=== PATIENT | male | born 1995 | race African-American/Black ===

== ENCOUNTER 2020-07-18 11:25 | Inpatient (IN) ==
[2020-07-18] MEDS ORDERED: SODIUM CHLORIDE 0.9% 1000ML 2,000 ML IV ONE (11:44)
[2020-07-18] MEDS ORDERED: ONDANSETRON INJ 2 MG/ML 2 ML VIAL IV STA (11:46)
[2020-07-18] MEDS ORDERED: ONDANSETRON INJ 2 MG/ML 2 ML VIAL ONE (11:47)
[2020-07-18 12:04] LABS: Hematocrit (blood only) 51.9 % (42-52); Hemoglobin 17.9 g/dL (14.0-18.0); Immature Granulocytes # (auto) 0.02 K/uL (0.00-0.02); Immature Granulocytes % (auto) 0.2 %; Lymphocytes # (auto) 1.46 K/uL (1.2-3.4); Mean Corpuscular Hemoglobin 30.1 pg (25-34); Mean Corpuscular Hgb Conc 34.5 g/dL (32-36); Mean Corpuscular Volume 87.4 fL (80-100); Mean Platelet Volume 11.9 fL (7.4-10.4); Monocytes # (auto) 0.45 K/uL (0.11-0.59); Monocytes % (auto) 4.9 %; Neutrophils # (auto) 7.17 K/uL (1.4-6.5); Neutrophils % (auto) 78.9 %; Platelet Count 233 K/uL (130-400); RDW Coefficient of Variation 12.9 % (11.5-14.5); Red Blood Count 5.94 M/uL (4.7-6.1)
[2020-07-18 12:06] LABS: Base Excess VBG 5.1 mEq/L; Oxygen Saturation VBG 82.2 %; pH VBG 7.55 (7.36-7.41)
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
[2020-07-18 12:13] LABS: iSTAT Creatinine 1.3 mg/dl (0.6-1.3); iSTAT Ionized Calcium 0.89 mmol/l (1.12-1.32); iSTAT Potassium 4.8 mmol/L (3.3-5.0)
[2020-07-18 12:25] LABS: BUN Creatinine Ratio 26.3 (10-20); Calcium 10.1 mg/dl (8.5-10.1); Creatinine Clr Calc Pharmacy 51.8 ml/min; Est GFR (African American) 67.8 ml/min; Est GFR (Non-African American) 58.5 ml/min; Potassium 3.5 mmol/L (3.5-5.1)
[2020-07-18] MEDS ORDERED: GLUCAGON FOR INJ 1 MG VIAL SQ PRN (12:28)
[2020-07-18] MEDS ORDERED: DEXTROSE 50% 50 ML SYRINGE IV PRN (12:28)
[2020-07-18] MEDS ORDERED: CARBOHYDRATES FOR HYPOGLYCEMIA PO PRN (12:28)
[2020-07-18] MEDS ORDERED: GLUCOSE 10 TAB/TUBE PO PRN (12:28)
[2020-07-18] MEDS ORDERED: STAT IV Infusion **Titration per Protocol STA (12:28)
[2020-07-18] MEDS ORDERED: ED DKA INSULIN DRIP ONE (12:28)
[2020-07-18] MEDS ORDERED: GLUCOSE 40% GEL 15 GM TUBE PO PRN (12:28)
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
[2020-07-18] MEDS ORDERED: POTASSIUM CHLORIDE 40 MEQ in SODIUM CHLORIDE 0.9% 1000ML 1,000 ML IV SCH (12:30)
[2020-07-18] MEDS ORDERED: INSULIN REGULAR 250 UNITS in SODIUM CHLORIDE 0.9% 247.5 ML IV SCH (12:30)
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
[2020-07-18] MEDS ORDERED: GI COCKTAIL ED USE PO ONE (12:42)
[2020-07-18 12:52] LABS: Beta-Hydroxybutyrate 65.61 mg/dl (0.2-2.81)
[2020-07-18 12:54] LABS: Estimated Average Glucose 214 mg/dl; Hemoglobin A1C 9.1 % (4.5-5.6)
[2020-07-18 12:56] LABS: Magnesium 2.7 mg/dl (1.8-2.4); Phosphorus 3.6 mg/dl (2.5-4.9)
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
[2020-07-18] MEDS ORDERED: PHARMACY GLYCEMIC MGMT CONSULT SCH (16:12)
--- NOTE | 2020-07-18 16:26 | Pharmacy Report ---
Pharmacy Glycemic Short Note 2 - Date of Service July 18, 2020 - Glycemic Short BSG Results (Last 24 hours): 07/18/20 07/18/20 07/18/20 11:37 11:54 12:00 Glucose 428 H* POC Glucose 456 H* POC Glucose (other) 443 H* 07/18/20 07/18/20 07/18/20 12:59 13:58 14:58 Glucose POC Glucose 341 H* 303 H* 256 H POC Glucose (other) 07/18/20 16:12 Glucose POC Glucose 206 H POC Glucose (other) Laboratory Tests 07/18/20 11:54 Carbon Dioxide 26 Anion Gap 19.0 H Beta-Hydroxybutyric Acd 65.61 H OUTPATIENT ANTIDIABETIC REGIMEN: * Lantus 26 units SQ QAM - LAST DOSE ON 07/17 AM * Apidra * CR 1 unit per 25 grams CHO consumed * CF 1:50 over 150mg/dl, max 6 units ASSESSMENT: * 24 year old male admitted in possible DKA or hyperglycemia (not HHS, osmolality OK, pH 7.55, anion gap 19, CO2 26, BHA 65) started on DKA protocol and insulin drip * Drip currently running at 5.1units/hr, blood sugar down to 206mg/dl, fluids changed from NS + 40K @ 125cc/hr to D5NS +40K @125cc/hr * Patient NPO, repeat labs at 1800 * Start Lantus at reduced dose, as patient did not take yet today PLAN FOR INPATIENT GLYCEMIC CONTROL: * IV insulin infusion, moderate stress * Running at 5.1units/hr * Goal range 150-250mg/dl - will change to 110-180mg/dl later this evening * Transition to basal bolus once euglycemic, gap closed, and clinically improving * Lantus 16 units x 1 dose now, then further dosing in AM
[2020-07-18] MEDS ORDERED: POTASSIUM CHLORIDE 40 MEQ in D5W AND NSS 1,000 ML IV SCH (16:30)
[2020-07-18] MEDS ORDERED: INSULIN ASPART 100 UNITS/ML 3 ML PEN SC SCH (16:30)
[2020-07-18] MEDS: ONDANSETRON INJ 2 MG/ML 2 ML VIAL IV PRN ×2 (16:31→20:19)
[2020-07-18 16:45] LABS: Appearance Urine Clear (Clear); Bacteria Urine Automated Negative (Negative); Bilirubin Urine Negative (Negative); Blood Urine Negative (Negative); Color Urine Yellow; Glucose Urine UA 3+ (Negative); Ketones Urine 3+ (Negative); Leukocyte Esterase Urine Negative (Negative); Nitrite Urine Negative (Negative); Protein Urine 2+ (Negative); RBC Urine Automated 0-4 /hpf (0-4); Specific Gravity Urine 1.039 (1.000-1.030); Urobilinogen Urine Negative (Negative); pH Urine 5.5 (4.5-7.5)
[2020-07-18] MEDS ORDERED: INSULIN GLARGINE SOLOSTAR 100 UNITS/ML 3 ML PEN SC ONE ×2 (16:45→20:30)
[2020-07-18] MEDS ORDERED: ALUMINUM/MAGNESIUM SUSP 18 ML, LIDOCAINE VISCOUS 2% SOLN 6 ML, BARCODE IDENTIFIER 1 EACH PO ONE (17:09)
[2020-07-18] MEDS ORDERED: FAMOTIDINE 20MG IV PUSH 20 MG/5 ML SYR IV STA (17:16)
[2020-07-18 18:03] LABS: Base Excess VBG 6.6 mEq/L; Oxygen Saturation VBG 88.9 %; pH VBG 7.46 (7.36-7.41)
[2020-07-18 18:20] LABS: BUN Creatinine Ratio 24.6 (10-20); Calcium 8.1 mg/dl (8.5-10.1); Creatinine Clr Calc Pharmacy 65.8 ml/min; Est GFR (African American) 90.6 ml/min; Est GFR (Non-African American) 78.2 ml/min; Potassium 3.5 mmol/L (3.5-5.1)
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
[2020-07-18] MEDS: POTASSIUM CHLORIDE 40 MEQ in DEXTROSE 5% 1,000 ML IV SCH (19:41)
[2020-07-18] MEDS: PENDING D5NS+40mEq KCL IVF SCH ×2 (19:45→20:08)
[2020-07-18] MEDS ORDERED: ALUMINUM/MAGNESIUM SUSP 30 ML UDC PO PRN (20:23)
[2020-07-18] MEDS: INSULIN ASPART 100 UNITS/ML 3 ML PEN SC SCH (20:26)
[2020-07-18] MEDS ORDERED: METOPROLOL TARTRATE 1 MG/ML VIAL IV PRN (20:34)
[2020-07-18] MEDS ORDERED: PROMETHAZINE HCL 6.25 MG in SODIUM CHLORIDE 0.9% 50 ML IV STA (20:34)
[2020-07-19] MEDS: INSULIN ASPART 100 UNITS/ML 3 ML PEN SC SCH ×7 (00:06→23:52)
[2020-07-19 00:34] LABS: Base Excess VBG 5.5 mEq/L; Oxygen Saturation VBG 87.2 %; pH VBG 7.45 (7.36-7.41)
[2020-07-19 00:52] LABS: BUN Creatinine Ratio 20.4 (10-20); Calcium 8.2 mg/dl (8.5-10.1); Creatinine Clr Calc Pharmacy 70.7 ml/min; Est GFR (African American) 98.9 ml/min; Est GFR (Non-African American) 85.3 ml/min
[2020-07-19] MEDS: POTASSIUM CHLORIDE 40 MEQ in DEXTROSE 5% 1,000 ML IV SCH ×3 (04:17→22:34)
[2020-07-19] MEDS: LEVOTHYROXINE SODIUM 88 MCG TABLET PO SCH (05:48)
[2020-07-19 06:20] LABS: Base Excess VBG 5.2 mEq/L; Oxygen Saturation VBG 91.9 %; pH VBG 7.44 (7.36-7.41)
[2020-07-19 06:33] LABS: Basophils # (auto) 0.01 K/uL (0-0.2); Basophils % (auto) 0.1 %; Hematocrit (blood only) 44.5 % (42-52); Hemoglobin 14.8 g/dL (14.0-18.0); Immature Granulocytes # (auto) 0.01 K/uL (0.00-0.02); Immature Granulocytes % (auto) 0.1 %; Lymphocytes # (auto) 1.43 K/uL (1.2-3.4); Lymphocytes % (auto) 17.8 %; Mean Corpuscular Hemoglobin 29.8 pg (25-34); Mean Corpuscular Hgb Conc 33.3 g/dL (32-36); Mean Corpuscular Volume 89.7 fL (80-100); Mean Platelet Volume 11.2 fL (7.4-10.4); Monocytes # (auto) 0.79 K/uL (0.11-0.59); Monocytes % (auto) 9.8 %; Neutrophils # (auto) 5.81 K/uL (1.4-6.5); Neutrophils % (auto) 72.2 %; Platelet Count 210 K/uL (130-400); RDW Coefficient of Variation 13.1 % (11.5-14.5); Red Blood Count 4.96 M/uL (4.7-6.1); White Blood Count 8.05 K/uL (4.8-10.8)
[2020-07-19 06:40] LABS: BUN Creatinine Ratio 18.5 (10-20); Calcium 8.3 mg/dl (8.5-10.1); Creatinine Clr Calc Pharmacy 85.2 ml/min; Est GFR (African American) 116.2 ml/min; Est GFR (Non-African American) 100.3 ml/min; Potassium 4.1 mmol/L (3.5-5.1)
[2020-07-19] MEDS: ONDANSETRON INJ 2 MG/ML 2 ML VIAL IV PRN (06:49)
[2020-07-19] MEDS ORDERED: INSULIN GLARGINE SOLOSTAR 100 UNITS/ML 3 ML PEN SC ONE ×2 (07:45→12:30)
[2020-07-19] MEDS ORDERED: PROMETHAZINE HCL 12.5 MG in SODIUM CHLORIDE 0.9% 50 ML IV ONE (08:00)
--- NOTE | 2020-07-19 11:01 | Pharmacy Report ---
Pharmacy Glycemic Short Note 2 - Date of Service July 19, 2020 - Glycemic Short BSG Results (Last 24 hours): 07/18/20 07/18/20 07/18/20 11:37 11:54 12:00 Glucose 428 H* POC Glucose 456 H* POC Glucose (other) 443 H* 07/18/20 07/18/20 07/18/20 12:59 13:58 14:58 Glucose POC Glucose 341 H* 303 H* 256 H POC Glucose (other) 07/18/20 07/18/20 07/18/20 16:12 17:20 17:34 Glucose POC Glucose 206 H 125 H 123 H POC Glucose (other) 07/18/20 07/18/20 07/18/20 17:54 17:58 18:29 Glucose 146 H POC Glucose 125 H 132 H POC Glucose (other) 07/18/20 07/19/20 07/19/20 20:02 00:01 00:23 Glucose 205 H POC Glucose 176 H 170 H POC Glucose (other) 07/19/20 07/19/20 07/19/20 03:54 05:54 07:32 Glucose 218 H POC Glucose 170 H 189 H POC Glucose (other) OUTPATIENT ANTIDIABETIC REGIMEN: * Lantus 26 units SQ QAM - LAST DOSE ON 07/17 AM * Apidra * CR 1 unit per 25 grams CHO consumed * CF 1:50 over 150mg/dl, max 6 units ASSESSMENT: 07/19 * IV insulin infusion dc yesterday @ 1900 when AG closed * Pt remains on D5 IVF secondary to NPO status * Will continue reduced basal insulin Lantus dosing for NPO status. Work back to QAM dosing to ease transition back to outpatient dosing of QAM. 07/18 * 24 year old male admitted in possible DKA or hyperglycemia (not HHS, osmolality OK, pH 7.55, anion gap 19, CO2 26, BHA 65) started on DKA protocol and insulin drip * Drip currently running at 5.1units/hr, blood sugar down to 206mg/dl, fluids changed from NS + 40K @ 125cc/hr to D5NS +40K @125cc/hr * Patient NPO, repeat labs at 1800 * Start Lantus at reduced dose, as patient did not take yet today PLAN FOR INPATIENT GLYCEMIC CONTROL: * Basal insulin * Lantus 20 units SQ daily in AM {this is reduced outpatient dosing for NPO} * NovoLog per scale Q4hrs * Goal range = 100-140 mg/dl * CF = 35 mg/dl/unit * CR = 1 unit for ever 15 g CHO consumed
[2020-07-19] MEDS ORDERED: METOCLOPRAMIDE HCL INJ 5 MG/ML 2 ML VIAL IV STA ×2 (12:24→19:01)
--- NOTE | 2020-07-19 13:43 | Hospitalist Progress Note ---
Date of Service July 19, 2020 Assessment & Plan (1) Diabetic ketosis: Treat as diabetic ketoacidosis although not acidotic but with significant anion gap. Anion gap 19 on admission now down to 4 can stop insulin drip, transition to basal bolus insulin not eating well at all due to ongoing nausea monitor for hypoglycemia will need to be eating better prior to discharge (2) Type 1 diabetes mellitus, uncontrolled: Given good HbA1c likely can get back on his usual insulin regimen on discharge. Hypoglycemia due to not taking his insulin with nausea and vomiting. (3) Gastroparesis: advance diet as tolerated most relief he got was with Reglan, can use short term, 10mg IV q6 PRN hopefully he can eat well tomorrow and be discharged (4) Nausea and vomiting: As above for gastroparesis. Clear liquid diet, advance diet as tolerated. (5) Hypothyroidism: Continue levothyroxine 88 mcg p.o. daily (6) Peripheral neuropathy: (7) Scoliosis: Admission and Anticipated Discharge Date Admission Date: July 18, 2020 Subjective patient fatigued, sleeping a lot today had some nausea, no relief with Zofran or Phenergan, better relief with Reglan, will order q6 PRN Anion gap is closed, off insulin drip not eating great so monitor sugars closely he is hoping he can eat better tomorrow and go home Review of Systems Review of Systems: All systems reviewed & are unremarkable except as noted in Subjective Physical Exam Constitutional: WD/WN, vitals as above no acute distress Neck: trachea midline, no thyromegaly Respiratory: normal respiratory effort, lungs clear to auscultation Cardiovascular: RRR, no murmur, no edema Gastrointestinal (Abdomen): normal bowel sounds, soft, nontender, no hepatosplenomegaly Musculoskeletal: no cyanosis or clubbing, extremities motor strength 5/5 Skin: no rashes, warm and dry Neurologic: patellar DTR's 2+ bilat, sensation intact and PERRL, EOMI, accommodation nl, no face palsy, no dysarthria Psychiatric: A+Ox3, euthymic affect Lymphatic: no cervical or axillary lymphadenopathy Results & Data Results & Data ([facility]) Vital Signs (Past 12 Hours) Vital Signs Temp Pulse Pulse Resp BP Pulse Ox 07/19/20 07:28 36.9 C 81 19 136/90 96 07/19/20 06:58 84 07/19/20 03:56 36.4 C L 75 16 151/83 H 95 Laboratory Results Laboratory Results - last 24 hr 07/18/20 07/18/20 07/18/20 12:45 13:17 13:58 WBC RBC Hgb Hct MCV MCH MCHC RDW Std Deviation RDW Coeff of Clarisa Plt Count MPV Immature Gran % (Auto) Neut % (Auto) Lymph % (Auto) [place] % (Auto) Eos % (Auto) Baso % (Auto) Neut # (Auto) Lymph # (Auto) Churchill # (Auto) Eos # (Auto) Baso # (Auto) Immature Gran # (Auto) VBG pH VBG pCO2 VBG pO2 VBG HCO3 VBG O2 Saturation VBG Base Excess Barometric Pressure Sodium Potassium Chloride Carbon Dioxide Anion Gap BUN Creatinine Est Cr Clr Drug Dosing Est GFR ( Amer) Est GFR (Non-Af Amer) BUN/Creatinine Ratio Glucose POC Glucose 303 H* Calcium Lipase Urine Color Yellow Urine Appearance Clear Urine pH 5.5 Ur Specific [place] 1.039 H Urine Protein 2+ H Urine Glucose (UA) 3+ H Urine Ketones 3+ H Urine Blood Negative Urine Nitrite Negative Urine Bilirubin Negative Urine Urobilinogen Negative Ur Leukocyte Esterase Negative Urine WBC (Auto) 1-5 Urine RBC (Auto) 0-4 U Hyaline Cast (Auto) 5-10 H U Epithel Cells (Auto) 5-10 H Urine Bacteria (Auto) Negative SARS-CoV-2 (PCR) NEGATIVE 07/18/20 07/18/20 07/18/20 14:58 16:12 17:20 WBC RBC Hgb Hct MCV MCH MCHC RDW Std Deviation RDW Coeff of Clarisa Plt Count MPV Immature Gran % (Auto) Neut % (Auto) Lymph % (Auto) [place] % (Auto) Eos % (Auto) Baso % (Auto) Neut # (Auto) Lymph # (Auto) Churchill # (Auto) Eos # (Auto) Baso # (Auto) Immature Gran # (Auto) VBG pH VBG pCO2 VBG pO2 VBG HCO3 VBG O2 Saturation VBG Base Excess Barometric Pressure Sodium Potassium Chloride Carbon Dioxide Anion Gap BUN Creatinine Est Cr Clr Drug Dosing Est GFR ( Amer) Est GFR (Non-Af Amer) BUN/Creatinine Ratio Glucose POC Glucose 256 H 206 H 125 H Calcium Lipase Urine Color Urine Appearance Urine pH Ur Specific [place] Urine Protein Urine Glucose (UA) Urine Ketones Urine Blood Urine Nitrite Urine Bilirubin Urine Urobilinogen Ur Leukocyte Esterase Urine WBC (Auto) Urine RBC (Auto) U Hyaline Cast (Auto) U Epithel Cells (Auto) Urine Bacteria (Auto) SARS-CoV-2 (PCR) 07/18/20 07/18/20 07/18/20 17:34 17:54 17:54 WBC RBC Hgb Hct MCV MCH MCHC RDW Std Deviation RDW Coeff of Clarisa Plt Count MPV Immature Gran % (Auto) Neut % (Auto) Lymph % (Auto) Churchill % (Auto) Eos % (Auto) Baso % (Auto) Neut # (Auto) Lymph # (Auto) Churchill # (Auto) Eos # (Auto) Baso # (Auto) Immature Gran # (Auto) VBG pH 7.46 H VBG pCO2 45 VBG pO2 55 VBG HCO3 32 VBG O2 Saturation 88.9 VBG Base Excess 6.6 Barometric Pressure 736.9 Sodium 149 H D Potassium 3.5 Chloride 112 H Carbon Dioxide 32 Anion Gap 5.0 BUN 32 H Creatinine 1.29 D Est Cr Clr Drug Dosing 65.8 Est GFR ( Amer) 90.6 Est GFR (Non-Af Amer) 78.2 BUN/Creatinine Ratio 24.6 H Glucose 146 H POC Glucose 123 H Calcium 8.1 L D Lipase Urine Color Urine Appearance Urine pH Ur Specific [place] Urine Protein Urine Glucose (UA) Urine Ketones Urine Blood Urine Nitrite Urine Bilirubin Urine Urobilinogen Ur Leukocyte Esterase Urine WBC (Auto) Urine RBC (Auto) U Hyaline Cast (Auto) U Epithel Cells (Auto) Urine Bacteria (Auto) SARS-CoV-2 (PCR) 07/18/20 07/18/20 07/18/20 17:54 17:58 18:29 WBC RBC Hgb Hct MCV MCH MCHC RDW Std Deviation RDW Coeff of Clarisa Plt Count MPV Immature Gran % (Auto) Neut % (Auto) Lymph % (Auto) Churchill % (Auto) Eos % (Auto) Baso % (Auto) Neut # (Auto) Lymph # (Auto) Churchill # (Auto) Eos # (Auto) Baso # (Auto) Immature Gran # (Auto) VBG pH VBG pCO2 VBG pO2 VBG HCO3 VBG O2 Saturation VBG Base Excess Barometric Pressure Sodium Potassium Chloride Carbon Dioxide Anion Gap BUN Creatinine Est Cr Clr Drug Dosing Est GFR ( Amer) Est GFR (Non-Af Amer) BUN/Creatinine Ratio Glucose POC Glucose 125 H 132 H Calcium Lipase 38 L Urine Color Urine Appearance Urine pH Ur Specific [place] Urine Protein Urine Glucose (UA) Urine Ketones Urine Blood Urine Nitrite Urine Bilirubin Urine Urobilinogen Ur Leukocyte Esterase Urine WBC (Auto) Urine RBC (Auto) U Hyaline Cast (Auto) U Epithel Cells (Auto) Urine Bacteria (Auto) SARS-CoV-2 (PCR) 07/18/20 07/19/20 07/19/20 20:02 00:01 00:23 WBC RBC Hgb Hct MCV MCH MCHC RDW Std Deviation RDW Coeff of Clarisa Plt Count MPV Immature Gran % (Auto) Neut % (Auto) Lymph % (Auto) Churchill % (Auto) Eos % (Auto) Baso % (Auto) Neut # (Auto) Lymph # (Auto) Churchill # (Auto) Eos # (Auto) Baso # (Auto) Immature Gran # (Auto) VBG pH VBG pCO2 VBG pO2 VBG HCO3 VBG O2 Saturation VBG Base Excess Barometric Pressure Sodium 146 H Potassium 4.0 Chloride 113 H Carbon Dioxide 30 Anion Gap 3.0 BUN 25 H Creatinine 1.20 Est Cr Clr Drug Dosing 70.7 Est GFR ( Amer) 98.9 Est GFR (Non-Af Amer) 85.3 BUN/Creatinine Ratio 20.4 H Glucose 205 H POC Glucose 176 H 170 H Calcium 8.2 L Lipase Urine Color Urine Appearance Urine pH Ur Specific [place] Urine Protein Urine Glucose (UA) Urine Ketones Urine Blood Urine Nitrite Urine Bilirubin Urine Urobilinogen Ur Leukocyte Esterase Urine WBC (Auto) Urine RBC (Auto) U Hyaline Cast (Auto) U Epithel Cells (Auto) Urine Bacteria (Auto) SARS-CoV-2 (PCR) 07/19/20 07/19/20 07/19/20 00:23 03:54 05:54 WBC 8.05 RBC 4.96 Hgb 14.8 D Hct 44.5 MCV 89.7 MCH 29.8 MCHC 33.3 RDW Std Deviation 43.0 RDW Coeff of Clarisa 13.1 Plt Count 210 MPV 11.2 H Immature Gran % (Auto) 0.1 Neut % (Auto) 72.2 Lymph % (Auto) 17.8 Churchill % (Auto) 9.8 Eos % (Auto) 0.0 Baso % (Auto) 0.1 Neut # (Auto) 5.81 Lymph # (Auto) 1.43 Churchill # (Auto) 0.79 H Eos # (Auto) 0.00 Baso # (Auto) 0.01 Immature Gran # (Auto) 0.01 VBG pH 7.45 H VBG pCO2 45 VBG pO2 53 VBG HCO3 30 VBG O2 Saturation 87.2 VBG Base Excess 5.5 Barometric Pressure 737.6 Sodium Potassium Chloride Carbon Dioxide Anion Gap BUN Creatinine Est Cr Clr Drug Dosing Est GFR ( Amer) Est GFR (Non-Af Amer) BUN/Creatinine Ratio Glucose POC Glucose 170 H Calcium Lipase Urine Color Urine Appearance Urine pH Ur Specific [place] Urine Protein Urine Glucose (UA) Urine Ketones Urine Blood Urine Nitrite Urine Bilirubin Urine Urobilinogen Ur Leukocyte Esterase Urine WBC (Auto) Urine RBC (Auto) U Hyaline Cast (Auto) U Epithel Cells (Auto) Urine Bacteria (Auto) SARS-CoV-2 (PCR) 07/19/20 07/19/20 07/19/20 05:54 05:54 07:32 WBC RBC Hgb Hct MCV MCH MCHC RDW Std Deviation RDW Coeff of Clarisa Plt Count MPV Immature Gran % (Auto) Neut % (Auto) Lymph % (Auto) [place] % (Auto) Eos % (Auto) Baso % (Auto) Neut # (Auto) Lymph # (Auto) [place] # (Auto) Eos # (Auto) Baso # (Auto) Immature Gran # (Auto) VBG pH 7.44 H VBG pCO2 45 VBG pO2 61 VBG HCO3 30 VBG O2 Saturation 91.9 VBG Base Excess 5.2 Barometric Pressure 737.6 Sodium 142 Potassium 4.1 Chloride 110 H Carbon Dioxide 29 Anion Gap 4.0 BUN 19 H Creatinine 1.05 Est Cr Clr Drug Dosing 85.2 Est GFR ( Amer) 116.2 Est GFR (Non-Af Amer) 100.3 BUN/Creatinine Ratio 18.5 Glucose 218 H POC Glucose 189 H Calcium 8.3 L Lipase Urine Color Urine Appearance Urine pH Ur Specific [place] Urine Protein Urine Glucose (UA) Urine Ketones Urine Blood Urine Nitrite Urine Bilirubin Urine Urobilinogen Ur Leukocyte Esterase Urine WBC (Auto) Urine RBC (Auto) U Hyaline Cast (Auto) U Epithel Cells (Auto) Urine Bacteria (Auto) SARS-CoV-2 (PCR) 07/19/20 11:29 WBC RBC Hgb Hct MCV MCH MCHC RDW Std Deviation RDW Coeff of Clarisa Plt Count MPV Immature Gran % (Auto) Neut % (Auto) Lymph % (Auto) [place] % (Auto) Eos % (Auto) Baso % (Auto) Neut # (Auto) Lymph # (Auto) [place] # (Auto) Eos # (Auto) Baso # (Auto) Immature Gran # (Auto) VBG pH VBG pCO2 VBG pO2 VBG HCO3 VBG O2 Saturation VBG Base Excess Barometric Pressure Sodium Potassium Chloride Carbon Dioxide Anion Gap BUN Creatinine Est Cr Clr Drug Dosing Est GFR ( Amer) Est GFR (Non-Af Amer) BUN/Creatinine Ratio Glucose POC Glucose 211 H Calcium Lipase Urine Color Urine Appearance Urine pH Ur Specific [place] Urine Protein Urine Glucose (UA) Urine Ketones Urine Blood Urine Nitrite Urine Bilirubin Urine Urobilinogen Ur Leukocyte Esterase Urine WBC (Auto) Urine RBC (Auto) U Hyaline Cast (Auto) U Epithel Cells (Auto) Urine Bacteria (Auto) SARS-CoV-2 (PCR) Medications Administered Current Inpatient Medications Acetaminophen (Acetaminophen 325 Mg Tab) 650 mg PO Q4H PRN PRN Reason: Pain or Fever Stop: 08/17/20 16:06 Al Hydrox/Mg Hydrox/Simethicone (Aluminum/Magnesium Susp 30 Ml Udc) 30 ml PO Q6H PRN PRN Reason: Heartburn Stop: 08/17/20 20:22 Last Admin: 07/18/20 20:37 Dose: 30 ml Documented by: Dextrose (Dextrose 50% 50 Ml Syringe) 25 - 50 ml IV UD PRN; Protocol PRN Reason: Hypoglycemia Protocol Stop: 08/17/20 12:27 Glucagon (Glucagon For Inj 1 Mg Vial) 1 mg SQ UD PRN; Protocol PRN Reason: Hypoglycemia Protocol Stop: 08/17/20 12:27 Glucose (Glucose 10 Tabs/Tube) 4 - 8 tabs PO UD PRN; Protocol PRN Reason: Hypoglycemia Protocol Stop: 08/17/20 12:27 Glucose (Glucose 40% Gel 15 Gm Tube) 15 - 30 gm PO UD PRN; Protocol PRN Reason: Hypoglycemia Protocol Stop: 08/17/20 12:27 Potassium Chloride 40 meq/ (Dextrose) 1,020 mls @ 125 mls/hr IV .Q8H10M KRISTIAN Stop: 08/17/20 18:59 Last Admin: 07/19/20 04:17 Dose: 125 mls/hr Documented by: Insulin Aspart (Insulin Aspart 100 Units/Ml 3 Ml Pen) 0 units SC Q4 [facility]; Protocol Stop: 08/17/20 19:59 Last Admin: 07/19/20 12:52 Dose: 3 units Documented by: Insulin Glargine (Insulin Glargine Solostar 100 Units/Ml 3 Ml Pen) 26 units SC DAILY [facility]; Protocol Stop: 08/19/20 08:59 Levothyroxine Sodium (Levothyroxine Sodium 88 Mcg Tablet) [facility] Stop: 08/18/20 06:29 Last Admin: 07/19/20 05:48 Dose: 88 mcg Documented by: Metoprolol Tartrate (Metoprolol Tartrate 1 Mg/Ml Vial) 5 mg IV Q4H PRN PRN Reason: Tachycardia Stop: 08/17/20 20:33 Miscellaneous (Carbohydrates For Hypoglycemia ) 15 - 30 gm PO UD PRN PRN Reason: Hypoglycemia Protocol Stop: 08/17/20 12:27 Miscellaneous Information (Pharmacy Glycemic Mgmt Consult) 1 ea N/A UD [facility] Stop: 08/17/20 16:11 Ondansetron HCl (Ondansetron Inj 2 Mg/Ml 2 Ml Vial) 4 mg IV Q4H PRN PRN Reason: Nausea Stop: 08/17/20 16:06 Last Admin: 07/19/20 06:49 Dose: 4 mg Documented by: PG Care Time/CCT Total # of Minutes Spent Total Time Spent with Patient: Total time spent is greater than 50% in coor dination of care (as documented) at patient's floor/unit and/or counseling patient: Coding Level of Care Code 95043 Subseq Hosp Care Lvl 2 Diagnoses Diabetic ketosis E13.10 Type 1 diabetes mellitus, uncontrolled E10.65 Gastroparesis K31.84 Nausea and vomiting R11.2 Hypothyroidism E03.9 Peripheral neuropathy G62.9 Scoliosis M41.9
--- NOTE | 2020-07-19 18:55 | Electrocardiogram Report ---
Test Reason : Blood Pressure : / mmHG Vent. Rate : 117 BPM Atrial Rate : 117 BPM P-R Int : 130 ms QRS Dur : 078 ms QT Int : 336 ms P-R-T Axes : 072 085 019 degrees QTc Int : 468 ms Sinus tachycardia Nonspecific ST abnormality Abnormal ECG When compared with ECG of 18-JUL-2020 11:43, (unconfirmed) No significant change was found Confirmed by Saulo Crooks ([id number]) on 07/19/2020 6:55:09 PM Referred By: REFERRED SELF Confirmed By:Geraldo Crooks
--- NOTE | 2020-07-19 18:56 | Electrocardiogram Report ---
Test Reason : Blood Pressure : / mmHG Vent. Rate : 113 BPM Atrial Rate : 113 BPM P-R Int : 118 ms QRS Dur : 078 ms QT Int : 336 ms P-R-T Axes : 071 094 021 degrees QTc Int : 460 ms Sinus tachycardia Rightward axis ST changes concerning for ischemia Borderline ECG When compared with ECG of 16-JAN-2018 18:56, Non-specific change in ST segment in Inferior leads Non-specific change in ST segment in Anterior leads Confirmed by Saulo Crooks ([id number]) on 07/19/2020 6:56:34 PM Referred By: REFERRED SELF Confirmed By:Geraldo Crooks
[2020-07-19] MEDS ORDERED: ALUMINUM/MAGNESIUM SUSP 1 ML, diphenhydrAMINE Syrup 2.5 MG, LIDOCAINE VISCOUS 2% SOLN 1 ML PO ONE (19:01)
[2020-07-19] MEDS ORDERED: METOCLOPRAMIDE HCL INJ 5 MG/ML 2 ML VIAL IV PRN (20:40)
[2020-07-20] MEDS: INSULIN ASPART 100 UNITS/ML 3 ML PEN SC SCH ×5 (05:03→22:31)
[2020-07-20] MEDS: LEVOTHYROXINE SODIUM 88 MCG TABLET PO SCH (05:59)
[2020-07-20] MEDS: POTASSIUM CHLORIDE 40 MEQ in DEXTROSE 5% 1,000 ML IV SCH ×3 (06:00→12:45)
[2020-07-20] MEDS: INSULIN GLARGINE SOLOSTAR 100 UNITS/ML 3 ML PEN SC SCH (08:41)
--- NOTE | 2020-07-20 08:55 | Pharmacy Report ---
Pharmacy Glycemic Short Note 2 - Date of Service July 20, 2020 - Glycemic Short BSG Results (Last 24 hours): 07/19/20 07/19/20 07/19/20 11:29 16:08 20:03 POC Glucose 211 H 199 H 226 H 07/19/20 07/20/20 07/20/20 23:50 05:01 07:25 POC Glucose 234 H 262 H 274 H OUTPATIENT ANTIDIABETIC REGIMEN: * Lantus 26 units SQ QAM - LAST DOSE ON 07/17 AM * Apidra * CR 1 unit per 25 grams CHO consumed * CF 1:50 over 150mg/dl, max 6 units * HbA1c: 9.1% (07/18/20) ASSESSMENT: 07/20 * BSGs yesterday of 189, 211, 199, 226, and 234 mg/dL * Received 42 units of insulin (26 units of Lantus and 16 units of correctional Novolog) * Appetite continues to be very minimal, but BSGs remain elevated * Fasting BSG of 274 mg/dL this morning - continue Lantus 26 units this morning * In light of elevated BSGs yesterday, will tighten Novolog parameters today * IV fluids infusing at 125 mL/hr containing dextrose were discontinued today * Anticipating corresponding improvement in BSGs 07/19 * IV insulin infusion dc yesterday @ 1900 when AG closed * Pt remains on D5 IVF secondary to NPO status * Will continue reduced basal insulin Lantus dosing for NPO status. Work back to QAM dosing to ease transition back to outpatient dosing of QAM. 07/18 * 24 year old male admitted in possible DKA or hyperglycemia (not HHS, osmolality OK, pH 7.55, anion gap 19, CO2 26, BHA 65) started on DKA protocol and insulin drip * Drip currently running at 5.1units/hr, blood sugar down to 206mg/dl, fluids changed from NS + 40K @ 125cc/hr to D5NS +40K @125cc/hr * Patient NPO, repeat labs at 1800 * Start Lantus at reduced dose, as patient did not take yet today PLAN FOR INPATIENT GLYCEMIC CONTROL: * Basal insulin * Lantus 26 units SQ daily in AM * NovoLog per scale Q4hrs * Goal range = 100-140 mg/dl * CF = 25 mg/dl/unit * CR = 1 unit for ever 12 g CHO consumed * Overnight checks at 00,04 with same parameters
--- NOTE | 2020-07-20 14:04 | Ultrasound Report ---
US duplex renal artery HISTORY: 24 years-old Male hypertension/ assess for renal artery stenosis hypertension. COMPARISON: None TECHNIQUE: Multiple real-time sonographic images of the renal vascular structures were obtained asses sing grayscale appearance, color and spectral flow FINDINGS: Patent right renal vein. No elevated peak systolic velocities within the right renal artery identifie d. Peak systolic velocities in the proximal renal artery measure up to 97 cm/s. Resistive index measu res up to 0.60. Normal plug flow within the abdominal aorta, peak systolic velocities measuring up to 100 cm/s. Patent left renal vein. No elevated peak systolic velocities within the left renal artery are identif ied. Peak systolic velocities within the proximal renal artery measure up to 123 cm/s. Resistive inde x measures up to 0.71. IMPRESSION: Unremarkable exam. No evidence of renal artery stenosis. ACT 112: Negative or not required by law. The above report was generated using voice recognition software. It may contain grammatical, syntax o r spelling errors. Electronically signed by: Mane Bryant M.D. 07/20/2020 2:02 PM
[2020-07-20] MEDS: ACETAMINOPHEN 325 MG TAB PO PRN (19:52)
--- NOTE | 2020-07-20 22:23 | Hospitalist Progress Note ---
Date of Service July 20, 2020 Assessment & Plan (1) Diabetic ketosis: Treat as diabetic ketoacidosis although not acidotic but with significant anion gap. Anion gap 19 on admission now down to 4 can stop insulin drip, transition to basal bolus insulin not eating well at all due to ongoing nausea monitor for hypoglycemia will need to be eating better prior to discharge will stop IVF. (2) Type 1 diabetes mellitus, uncontrolled: Given good HbA1c likely can get back on his usual insulin regimen on discharge. Hypoglycemia due to not taking his insulin with nausea and vomiting. (3) Gastroparesis: advance diet as tolerated most relief he got was with Reglan, can use short term, 10mg IV q6 PRN hopefully he can eat well tomorrow and be discharged (4) Nausea and vomiting: As above for gastroparesis. Clear liquid diet, advance diet as tolerated. (5) Hypothyroidism: Continue levothyroxine 88 mcg p.o. daily (6) Peripheral neuropathy: (7) Scoliosis: (8) Elevated blood pressure reading: Blood pressure has been intermittently elevated. will obtain workup for secondary causes of hypertension. renin, aldosterone, metanephrine, and ultrasound of kidney. Admission and Anticipated Discharge Date Admission Date: July 20, 2020 Subjective 24 yo male reports feeling well. He has no new complaints at this time. Review of Systems Review of Systems: All systems reviewed & are unremarkable except as noted in HPI & below Physical Exam Physical Exam: Constitutional: WD/WN, vitals as above no acute distress Neck: trachea midline, no thyromegaly Respiratory: normal respiratory effort, lungs clear to auscultation Cardiovascular: RRR, no murmur, no edema Gastrointestinal (Abdomen): normal bowel sounds, soft, nontender, no hepatosplenomegaly Musculoskeletal: no cyanosis or clubbing, extremities motor strength 5/5 Skin: no rashes, warm and dry Neurologic: patellar DTR's 2+ bilat, sensation intact and PERRL, EOMI, accommodation nl, no face palsy, no dysarthria Psychiatric: A+Ox3, euthymic affect Lymphatic: no cervical or axillary lymphadenopathy Results & Data Results & Data ([facility]) Vital Signs (Past 12 Hours) Vital Signs Temp Pulse Pulse Resp BP Pulse Ox Pulse Ox 07/20/20 19:40 37.5 C 104 H 16 132/95 99 07/20/20 17:00 82 07/20/20 14:14 148/96 H 07/20/20 11:14 36.6 C 81 20 171/113 H 98 07/20/20 11:00 98 PG Care Time/CCT Total # of Minutes Spent Total Time Spent with Patient: Total time spent is greater than 50% in coordination of care (as documented) at patient's floor/unit and/or counseling patient: Coding Level of Care Code 23588 Subseq Hosp Care Lvl 3 Diagnoses Diabetic ketosis E13.10 Type 1 diabetes mellitus, uncontrolled E10.65 Gastroparesis K31.84 Nausea and vomiting R11.2 Hypothyroidism E03.9 Peripheral neuropathy G62.9 Scoliosis M41.9 Elevated blood pressure reading R03.0 Time Spent (min) 35
[2020-07-21] MEDS: INSULIN ASPART 100 UNITS/ML 3 ML PEN SC SCH ×7 (00:36→20:59)
[2020-07-21] MEDS: LEVOTHYROXINE SODIUM 88 MCG TABLET PO SCH (06:17)
[2020-07-21] MEDS: INSULIN GLARGINE SOLOSTAR 100 UNITS/ML 3 ML PEN SC SCH (08:47)
--- NOTE | 2020-07-21 09:19 | Pharmacy Report ---
Pharmacy Glycemic Short Note 2 - Date of Service July 21, 2020 - Glycemic Short BSG Results (Last 24 hours): 07/20/20 07/20/20 07/20/20 11:14 16:12 20:56 POC Glucose 228 H 148 H 90 07/21/20 07/21/20 07/21/20 00:31 02:34 04:13 POC Glucose 90 82 99 07/21/20 07:29 POC Glucose 113 H OUTPATIENT ANTIDIABETIC REGIMEN: * Lantus 26 units SQ QAM - LAST DOSE ON 07/17 AM * Apidra * CR 1 unit per 25 grams CHO consumed * CF 1:50 over 150mg/dl, max 6 units * HbA1c: 9.1% (07/18/20) ASSESSMENT: 07/21 * BSGs improved throughout the day yesterday, 274, 228, 148, 97 mg/dL * Received 42 units of insulin (26 units of basal, 16 units of prandial/correctional) * IV fluids (containing dextrose) discontinued yesterday - BSGs much improved since that time * Will loosen Novolog considerably today, continue home basal * Patient with gastroparesis - appetite still very limited * Patient unfortunately experienced episode of hypoglycemia late this morning (profuse sweating with BSG of 45 mg/dL) * Likely the result of decreased appetite and recent IV fluid discontinuation * Will decrease basal insulin for tomorrow 07/20 * BSGs yesterday of 189, 211, 199, 226, and 234 mg/dL * Received 42 units of insulin (26 units of Lantus and 16 units of correctional Novolog) * Appetite continues to be very minimal, but BSGs remain elevated * Fasting BSG of 274 mg/dL this morning - continue Lantus 26 units this morning * In light of elevated BSGs yesterday, will tighten Novolog parameters today * IV fluids infusing at 125 mL/hr containing dextrose were discontinued today * Anticipating corresponding improvement in BSGs 07/19 * IV insulin infusion dc yesterday @ 1900 when AG closed * Pt remains on D5 IVF secondary to NPO status * Will continue reduced basal insulin Lantus dosing for NPO status. Work back to QAM dosing to ease transition back to outpatient dosing of QAM. 07/18 * 24 year old male admitted in possible DKA or hyperglycemia (not HHS, osmolality OK, pH 7.55, anion gap 19, CO2 26, BHA 65) started on DKA protocol and insulin drip * Drip currently running at 5.1units/hr, blood sugar down to 206mg/dl, fluids changed from NS + 40K @ 125cc/hr to D5NS +40K @125cc/hr * Patient NPO, repeat labs at 1800 * Start Lantus at reduced dose, as patient did not take yet today PLAN FOR INPATIENT GLYCEMIC CONTROL: * Basal insulin - continue * Lantus 26 units SQ daily in AM * Lantus put on hold - will reassess in AM * NovoLog per scale ACHS - loosen * Goal range = 100-140 mg/dl * CF = 50 mg/dl/unit * CR = 1 unit for ever 25 g CHO consumed PLAN FOR DISCHARGE: * HbA1c of 9.1% on 07/18/20, but 7.9% on 07/07/20 * This elevation over a short period of time is likely due to recent significant hyperglycemia/DKA * Patient follows with endocrinology (recently seen earlier this month) - slight changes made at that time * Will need to assess appetite at time of discharge before recommending changes
[2020-07-21] MEDS: ONDANSETRON INJ 2 MG/ML 2 ML VIAL IV PRN (09:30)
[2020-07-21] MEDS: ACETAMINOPHEN 325 MG TAB PO PRN (11:03)
--- NOTE | 2020-07-21 13:31 | Gastrointestinal Consultation ---
Date of Consultation July 21, 2020 Assessment & Plan (1) Nausea and vomiting: (2) GERD (gastroesophageal reflux disease): (3) Gastroparesis: Continue IV Reglan as per primary team at 10 mg IV q6 hours Start Pantoprazole 40 mg by mouth each morning Recommend small frequent meals, up to 6 per day, with low fat and low fiber content. Recommend adequate blood glucose control, as fluctuations, both acute and chronic can result in decreased GI motility. Follows with endocrinology and they are trying to get an insulin pump approved. Most recent HgbA1c as per patient was 7.9. History of Present Illness Reason for Consultation: Gastroparesis, Nausea Attending Physician: Garcia Pinon History of Present Illness 24 yo AAM with an extensive PMHx that includes Type I DM, Diabetic and gastroparesis who presented to the ER yesterday with complaints of headache, nausea and vomiting. He was subsequently noted to have diabetic ketosis with a significant anion gap. He was subsequently admitted and placed on an insulin drip. He has been tolerating a clear liquid diet, and states that Reglan has been helpful with his gastroparesis, and has improved his nausea. At the time I saw the patient, he had just finished eating some chicken and jello. He states that he is feeling much better today. He states the Zofran has helped slightly with his nausea. He denies any abdominal pain, hematemesis, melena or hematochezia. He does note some burning in his throat following meals at times, but denies any dysphagia or odynophagia. He states that he has never undergone an EGD. He has no further complaints. Allergies Allergy/AdvReac Type Severity Reaction Status Date / Time No Known Allergies Allergy Verified 07/18/20 13:09 Home Medications Medication Instructions Recorded Confirmed Type urine glucose-ketones test #50 ea 12/17/18 07/07/20 Rx OneTouch Verio Flex Start #1 ea NS 05/23/19 07/07/20 Rx OneTouch Verio test strips #400 ea NS 05/23/19 07/07/20 Rx pen needle, diabetic 31 gauge x #400 ea 09/24/19 07/07/20 Rx 5/16" Accu-Chek Fastclix Lancet Drum #400 ea NS 12/02/19 07/07/20 Rx Dexcom G6 Pie Maker Machine #1 ea NS 07/06/20 Rx Dexcom G6 Sensor #3 ea NS 07/06/20 Rx Dexcom G6 Transmitter #1 ea NS 07/06/20 Rx glucagon (human recombinant) 1 mg 1 mg SUBCUT Q20M PRN #1 ea 07/07/20 07/18/20 Rx solution for injection insulin glargine 100 unit/mL (3 26 unit SUBCUT QAM box 07/07/20 07/18/20 History mL) subcutaneous pen insulin glulisine U-100 [Apidra 0 unit SQ TIDM 07/18/20 07/18/20 History SoloStar U-100 Insulin] levothyroxine 88 mcg PO DAILYBB 07/18/20 07/18/20 History Patient History Medical History Gastroparesis Zakiya's disease Hypothyroidism Peripheral neuropathy Scoliosis Family History Other No significant family history Denies family history of Crohn's disease Colorectal cancer Ulcerative colitis Social History Smoking Status: Never smoker Second Hand Exposure: No; Do You Dip or Chew Tobacco: No; Tobacco Cessation Education Requested by Patient: No Hx Alcohol Use: Yes Hx Substance Use: No Preferred Language: Maori Communication Ability: Effective Sales Effectiveness Manager Required: No Beliefs That Will Affect Care: None marital status: Single Current Living Situation: Alone current occupational status: student Other Information That Helps Us Care for You: No Feels Safe at Home: Yes Safety Concerns: Feels Safe At This Time Assistive Devices: None Review of Systems Review of Systems: All systems reviewed & are unremarkable except as noted in HPI & below Physical Exam Constitutional: WD/WN, vitals as above Eyes: + anicteric sclerae ENMT: external ear and nose normal, oropharynx normal Neck: normal visual inspection Respiratory: normal respiratory effort, lungs clear to auscultation Cardiovascular: RRR, no murmur, no edema Gastrointestinal (Abdomen): normal bowel sounds, soft, nontender, no hepatosplenomegaly Skin: no rashes Psychiatric: A+Ox3, euthymic affect Results & Data ([facility]) Vital Signs (Past 12 Hours) Vital Signs Temp Pulse Resp BP Pulse Ox Pulse Ox 05/18/21 11:00 36.4 C L 91 H 19 145/95 H 100 100 07/21/20 07:46 36.8 C 92 H 20 124/85 100 07/21/20 04:15 36.7 C 92 H 16 102/67 98 PG Care Time/CCT Total # of Minutes Spent Total Time Spent with Patient: Total time spent is greater than 50% in coordination of care (as documented) at patient's floor/unit and/or counseling patient: Coding Level of Care Code 75425 Inpt Consult Level 3 Diagnoses Nausea and vomiting R11.2 GERD (gastroesophageal reflux disease) K21.9 Gastroparesis K31.84
[2020-07-21] MEDS: PANTOprazole 40 MG TAB PO SCH (17:57)
--- NOTE | 2020-07-21 22:25 | Hospitalist Progress Note ---
Date of Service July 21, 2020 Assessment & Plan (1) Diabetic ketosis: Treat as diabetic ketoacidosis although not acidotic but with significant anion gap. Anion gap 19 on admission now down to 4 can stop insulin drip, transition to basal bolus insulin not eating well at all due to ongoing nausea monitor for hypoglycemia will need to be eating better prior to discharge will stop IVF. Will continue to monitor. Patient gives consent to reglan, will try TIDM tomorrow. (2) Type 1 diabetes mellitus, uncontrolled: Given good HbA1c likely can get back on his usual insulin regimen on discharge. Hypoglycemia due to not taking his insulin with nausea and vomiting. (3) Gastroparesis: advance diet as tolerated most relief he got was with Reglan, can use short term, 10mg IV q6 PRN hopefully he can eat well tomorrow and be discharged (4) Nausea and vomiting: As above for gastroparesis. Clear liquid diet, advance diet as tolerated. (5) Hypothyroidism: Continue levothyroxine 88 mcg p.o. daily (6) Peripheral neuropathy: (7) Scoliosis: (8) Elevated blood pressure reading: Blood pressure has been intermittently elevated. will obtain workup for secondary causes of hypertension. renin, aldosterone, metanephrine, and ultrasound of kidney. Admission and Anticipated Discharge Date Admission Date: July 20, 2020 Subjective Patient reports feeling well. He has no new complaints. His main issue today is that he still does not want to eat. His blood sugar was low this AM. For dinner, his diet level has improved. Review of Systems Review of Systems: All systems reviewed & are unremarkable except as noted in HPI & below Physical Exam Physical Exam: Constitutional: WD/WN, vitals as above no acute distress Neck: trachea midline, no thyromegaly Respiratory: normal respiratory effort, lungs clear to auscultation Cardiovascular: RRR, no murmur, no edema Gastrointestinal (Abdomen): normal bowel sounds, soft, nontender, no hepatosplenomegaly Musculoskeletal: no cyanosis or clubbing, extremities motor strength 5/5 Skin: no rashes, warm and dry Neurologic: patellar DTR's 2+ bilat, sensation intact and PERRL, EOMI, accommodation nl, no face palsy, no dysarthria Psychiatric: A+Ox3, euthymic affect Lymphatic: no cervical or axillary lymphadenopathy Results & Data Results & Data ([facility]) Vital Signs (Past 12 Hours) Vital Signs Temp Pulse Resp BP Pulse Ox Pulse Ox 07/21/20 19:28 37.1 C 88 19 111/78 99 07/21/20 15:10 36.8 C 100 H 19 117/78 100 07/21/20 11:00 36.4 C L 91 H 19 145/95 H 100 100 PG Care Time/CCT Total # of Minutes Spent Total Time Spent with Patient: Total time spent is greater than 50% in coordination of care (as documented) at patient's floor/unit and/or counseling patient: Coding Level of Care Code 20881 Subseq Hosp Care Lvl 3 Diagnoses Diabetic ketosis E13.10 Type 1 diabetes mellitus, uncontrolled E10.65 Gastroparesis K31.84 Nausea and vomiting R11.2 Hypothyroidism E03.9 Peripheral neuropathy G62.9 Scoliosis M41.9 Elevated blood pressure reading R03.0 Time Spent (min) 35
[2020-07-22] MEDS: LEVOTHYROXINE SODIUM 88 MCG TABLET PO SCH (05:56)
[2020-07-22] MEDS: PANTOprazole 40 MG TAB PO SCH (07:22)
[2020-07-22] MEDS: INSULIN ASPART 100 UNITS/ML 3 ML PEN SC SCH ×3 (08:26→17:14)
[2020-07-22] MEDS ORDERED: INSULIN GLARGINE SOLOSTAR 100 UNITS/ML 3 ML PEN SC SCH (09:00)
[2020-07-22] MEDS: METOCLOPRAMIDE HCL 5 MG TABLET PO SCH ×2 (11:59→17:15)
--- NOTE | 2020-07-22 13:09 | Pharmacy Report ---
Pharmacy Glycemic Short Note 2 - Date of Service July 22, 2020 - Glycemic Short BSG Results (Last 24 hours): 07/21/20 07/21/20 07/22/20 16:03 20:27 07:25 POC Glucose 99 134 H 298 H 07/22/20 11:29 POC Glucose 221 H OUTPATIENT ANTIDIABETIC REGIMEN: * Lantus 26 units SQ QAM - LAST DOSE ON 07/17 AM * Apidra * CR 1 unit per 25 grams CHO consumed * CF 1:50 over 150mg/dl, max 6 units * HbA1c: 9.1% (07/18/20) ASSESSMENT: 07/22 * Despite fasting BSG of 298 mg/dL this morning and in light of symptomatic hypoglycemic episode yesterday, will decrease basal insulin by ~20% * Metoclopramide initiated today for treatment of gastroparesis - will need to follow oral intake and adjust insulin accordingly 07/21 * BSGs improved throughout the day yesterday, 274, 228, 148, 97 mg/dL * Received 42 units of insulin (26 units of basal, 16 units of prandial/correctional) * IV fluids (containing dextrose) discontinued yesterday - BSGs much improved since that time * Will loosen Novolog considerably today, continue home basal * Patient with gastroparesis - appetite still very limited * Patient unfortunately experienced episode of hypoglycemia late this morning (profuse sweating with BSG of 45 mg/dL) * Likely the result of decreased appetite and recent IV fluid discontinuation * Will decrease basal insulin for tomorrow 07/20 * BSGs yesterday of 189, 211, 199, 226, and 234 mg/dL * Received 42 units of insulin (26 units of Lantus and 16 units of correctional Novolog) * Appetite continues to be very minimal, but BSGs remain elevated * Fasting BSG of 274 mg/dL this morning - continue Lantus 26 units this morning * In light of elevated BSGs yesterday, will tighten Novolog parameters today * IV fluids infusing at 125 mL/hr containing dextrose were discontinued today * Anticipating corresponding improvement in BSGs 07/19 * IV insulin infusion dc yesterday @ 1900 when AG closed * Pt remains on D5 IVF secondary to NPO status * Will continue reduced basal insulin Lantus dosing for NPO status. Work back to QAM dosing to ease transition back to outpatient dosing of QAM. 07/18 * 24 year old male admitted in possible DKA or hyperglycemia (not HHS, osmolality OK, pH 7.55, anion gap 19, CO2 26, BHA 65) started on DKA protocol and insulin drip * Drip currently running at 5.1units/hr, blood sugar down to 206mg/dl, fluids changed from NS + 40K @ 125cc/hr to D5NS +40K @125cc/hr * Patient NPO, repeat labs at 1800 * Start Lantus at reduced dose, as patient did not take yet today PLAN FOR INPATIENT GLYCEMIC CONTROL: * Basal insulin - decrease * Lantus 20 units SQ daily this morning * NovoLog per scale ACHS * Goal range = 100-140 mg/dl * CF = 50 mg/dl/unit * CR = 1 unit for ever 25 g CHO consumed PLAN FOR DISCHARGE: * HbA1c of 9.1% on 07/18/20, but 7.9% on 07/07/20 * This elevation over a short period of time is likely due to recent significant hyperglycemia/DKA * Patient follows with endocrinology (recently seen earlier this month) - slight changes made at that time * Will need to assess appetite at time of discharge before recommending changes
[2020-07-22 15:13] LABS: Hematocrit (blood only) 51.7 % (42-52); Hemoglobin 18.4 g/dL (14.0-18.0); Mean Corpuscular Hemoglobin 30.8 pg (25-34); Mean Corpuscular Hgb Conc 35.6 g/dL (32-36); Mean Corpuscular Volume 86.5 fL (80-100); Mean Platelet Volume 11.8 fL (7.4-10.4); Platelet Count 202 K/uL (130-400); RDW Coefficient of Variation 12.2 % (11.5-14.5); RDW Standard Deviation 39.3 fL (36.4-46.3); Red Blood Count 5.98 M/uL (4.7-6.1); White Blood Count 3.44 K/uL (4.8-10.8)
[2020-07-22 15:38] LABS: BUN Creatinine Ratio 14.7 (10-20); Calcium 9.2 mg/dl (8.5-10.1); Creatinine Clr Calc Pharmacy 77.8 ml/min; Est GFR (African American) 104.1 ml/min; Est GFR (Non-African American) 89.8 ml/min; Magnesium 2.4 mg/dl (1.8-2.4); Phosphorus 2.7 mg/dl (2.5-4.9); Potassium 4.5 mmol/L (3.5-5.1)
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
[2020-07-25 13:21] LABS: Renin Activity 0.33 ng/mL/h (0.25-5.82)
[2020-07-28 23:36] LABS: Creatinine, Random Urine 65 mg/dL (20-320); Total Metanephrine 142 mcg/g cr (156-442)
== END 2020-07-22 18:20 | disposition home or self-care (01) ==
LOC: ED 11:25 → 2S 11:25 → SUATTDRO 13:21 → 2S 15:37